=== PATIENT | male | born 1965 | race Caucasian/White ===

== ENCOUNTER 2017-11-12 15:11 | Inpatient (IN) | payer BC ==
[~2017-11-12] VITALS: Ht 172.7 cm; Wt 126.5 kg
[~2017-11-12 15:11] MED LIST: ADULT ONE DAI200 MCG PO; ANTIBIOTIC; ASCORBIC ACID500 M3 PO; BACLOFEN10 MG PO; BISACODYL5 MG PO; DOCUSATE SODIU100 MG PO; FOLIC ACID1 MG PO; GABAPENTIN300 MG PO; LIDOCAINE700 MG TD; LOPRESSOR25 MG PO; LOVENOX40 MG/0.4 SC; MOTRIN IB200 MG PO; OXYCODONE HCL5 MG PO; POLYETHYLENE GL17 GM PO; PRINIVIL20 MG PO; SENNA8.6 MG PO; THERAGRAN1 TABLET PO; TYLENOL REGULA325 MG PO
[2017-11-12 15:40] LABS: BASOPHIL (%) 0.6 % (0-1); BASOPHIL COUNT 0.1 K/uL (0-0.1); EOSINOPHIL (%) 1.1 % (0-5); EOSINOPHIL COUNT 0.1 K/uL (0-0.3); HEMOGLOBIN 17.6 G/DL (12.5-16.6); IMMATURE GRANULOCYTE (%) 0.7 % (0.0-0.7); LYMPHOCYTE (%) 11.2 % (15-42); LYMPHOCYTE COUNT 1.4 K/uL (1.0-2.8); MCH 30.4 PG (29.0-34.0); MCHC 34.5 G/DL (30.0-36.0); MCV 88.2 FL (86-99); MONOCYTE (%) 6.4 % (3-12); MONOCYTE COUNT 0.8 K/uL (0-0.8); NEUTROPHIL COUNT 10.1 K/uL (1.8-6.4); PLATELET COUNT 205 K/uL (156-360); RBC DIS.WIDTH-CV 13.8 % (11.8-14.6); RBC DIS.WIDTH-SD 44.9 % (39-53); RED BLOOD COUNT 5.78 M/uL (4.00-5.50); WHITE BLOOD COUNT 12.6 K/uL (4.1-10.2)
[2017-11-12 15:48] LABS: CHLORIDE 102 mEq/L (99-109); POTASSIUM 4.6 mEq/L (3.7-5.4); SODIUM 132 mEq/L (136-147)
[2017-11-12 15:50] LABS: GLUCOSE 366 mg/dL (70-99)
[2017-11-12 15:54] LABS: CREATININE 1.2 mg/dL (0.6-1.3); GFR ESTIMATE (CALCULATED) > 59 mL/min/ (58.99-99999)
[2017-11-12 15:55] LABS: UREA NITROGEN (BUN) 15 mg/dL (9-23)
[2017-11-12] MEDS ORDERED: BACTROBAN OINTM22 GM TP (18:04)
[2017-11-12] MEDS ORDERED: METOPROLOL SUCC50 MG PO (18:04)
[2017-11-12] MEDS ORDERED: [UNRECOGNIZED DRUG - OTHER] PO (18:04)
[2017-11-12] MEDS ORDERED: BACTRIM,SEPT1 TABLET PO (18:05)
[2017-11-12] MEDS ORDERED: METFORMIN HCL500 MG PO (18:05)
[2017-11-12] MEDS ORDERED: KETOCONAZOLE60 GM TP (18:06)
[2017-11-12 19:30] LABS: APPEARANCE CLEAR ((CLEAR)); BILIRUBIN NEGATIVE; BLOOD SMALL; COLOR YELLOW ((YELLOW)); GLUCOSE (STRIP) >=500; KETONES 80; LEUKOCYTES NEGATIVE; NITRITE NEGATIVE; PROTEIN (STRIP) 30; SPECIFIC GRAVITY 1.029 (1.000-1.030); UROBILINOGEN 0.2 MG/DL (0.2-1.0)
[2017-11-12 19:35] LABS: BACTERIA NONE SEEN /HPF; EPITHELIAL CELLS RARE /HPF; MUCUS TRACE /LPF; RED BLOOD CELLS 0-5 /HPF (0-5); WHITE BLOOD CELLS 0-5 /HPF (0-5)
[2017-11-12 20:45] LABS: CHLORIDE 109 mEq/L (99-109); SODIUM 137 mEq/L (136-147)
[2017-11-12 20:47] LABS: GLUCOSE 205 mg/dL (70-99)
[2017-11-12 20:48] LABS: POTASSIUM 3.4 mEq/L (3.7-5.4)
[2017-11-12 20:50] LABS: PHOSPHORUS 2.1 mg/dL (2.5-4.9)
[2017-11-12 20:51] LABS: CREATININE 0.8 mg/dL (0.6-1.3); GFR ESTIMATE (CALCULATED) > 59 mL/min/ (58.99-99999)
[2017-11-12 20:52] LABS: UREA NITROGEN (BUN) 15 mg/dL (9-23)
[2017-11-12 23:00] VITALS: BP 145/91
[2017-11-13] VITALS (13 sets, daily range): BP systolic 128–158; BP diastolic 75–103
[2017-11-13 00:42] LABS: CHLORIDE 109 mEq/L (99-109); POTASSIUM 3.4 mEq/L (3.7-5.4); SODIUM 134 mEq/L (136-147)
[2017-11-13 00:44] LABS: GLUCOSE 225 mg/dL (70-99)
[2017-11-13 00:47] LABS: PHOSPHORUS 1.9 mg/dL (2.5-4.9)
[2017-11-13 00:48] LABS: CREATININE 0.8 mg/dL (0.6-1.3); GFR ESTIMATE (CALCULATED) > 59 mL/min/ (58.99-99999); UREA NITROGEN (BUN) 13 mg/dL (9-23)
[2017-11-13 05:03] LABS: CHLORIDE 111 mEq/L (99-109); POTASSIUM 3.3 mEq/L (3.7-5.4); SODIUM 136 mEq/L (136-147)
[2017-11-13 05:05] LABS: GLUCOSE 191 mg/dL (70-99)
[2017-11-13 05:08] LABS: PHOSPHORUS 2.2 mg/dL (2.5-4.9)
[2017-11-13 05:09] LABS: CREATININE 0.7 mg/dL (0.6-1.3); GFR ESTIMATE (CALCULATED) > 59 mL/min/ (58.99-99999); UREA NITROGEN (BUN) 11 mg/dL (9-23)
[2017-11-13 08:41] LABS: CHLORIDE 110 MEQ/L (99-109); CREATININE 0.5 MG/DL (0.6-1.3); GFR ESTIMATE (CALCULATED) > 59 mL/min/ (58.99-99999); GLUCOSE 182 mg/dL (70-99); PHOSPHORUS 2.1 mg/dL (2.5-4.9); SODIUM 136 MEQ/L (136-147); UREA NITROGEN (BUN) 11 mg/dL (9-23)
[2017-11-13 13:53] LABS: CHLORIDE 109 mEq/L (99-109); POTASSIUM 3.1 mEq/L (3.7-5.4); SODIUM 137 mEq/L (136-147)
[2017-11-13 13:54] LABS: GLUCOSE 187 mg/dL (70-99)
[2017-11-13 13:58] LABS: CREATININE 0.7 mg/dL (0.6-1.3); GFR ESTIMATE (CALCULATED) > 59 mL/min/ (58.99-99999)
[2017-11-13 13:59] LABS: UREA NITROGEN (BUN) 10 mg/dL (9-23)
[2017-11-13 18:24] LABS: CHLORIDE 107 MEQ/L (99-109); POTASSIUM 3.1 MEQ/L (3.7-5.4); SODIUM 135 MEQ/L (136-147)
[2017-11-13 18:30] LABS: CREATININE 0.5 MG/DL (0.6-1.3); GFR ESTIMATE (CALCULATED) > 59 mL/min/ (58.99-99999); GLUCOSE 158 mg/dL (70-99); UREA NITROGEN (BUN) 12 mg/dL (9-23)
[2017-11-13 18:32] LABS: PHOSPHORUS 3.1 mg/dL (2.5-4.9)
[2017-11-14] VITALS (11 sets, daily range): BP systolic 128–163; BP diastolic 82–114
[2017-11-14 10:57] LABS: HEMOGLOBIN A1c (GLYCOHEMOGLOB) 12.2 % (Below 5.7)
[2017-11-14 11:32] LABS: CHLORIDE 104 MEQ/L (99-109); CREATININE 0.5 MG/DL (0.6-1.3); GFR ESTIMATE (CALCULATED) > 59 mL/min/ (58.99-99999); SODIUM 139 MEQ/L (136-147); UREA NITROGEN (BUN) 9 mg/dL (9-23)
[2017-11-14 11:33] LABS: GLUCOSE 307 mg/dL (70-99)
[2017-11-14 19:35] LABS: CHLORIDE 103 MEQ/L (99-109); CREATININE 0.5 MG/DL (0.6-1.3); GFR ESTIMATE (CALCULATED) > 59 mL/min/ (58.99-99999); GLUCOSE 268 mg/dL (70-99); POTASSIUM 3.3 MEQ/L (3.7-5.4); SODIUM 138 MEQ/L (136-147); UREA NITROGEN (BUN) 12 mg/dL (9-23)
[2017-11-15 03:42] VITALS: BP 142/91
[2017-11-15 07:09] LABS: CHLORIDE 104 MEQ/L (99-109); CREATININE 0.4 MG/DL (0.6-1.3); GFR ESTIMATE (CALCULATED) > 59 mL/min/ (58.99-99999); GLUCOSE 229 mg/dL (70-99); PHOSPHORUS 3.8 mg/dL (2.5-4.9); POTASSIUM 3.6 MEQ/L (3.7-5.4); SODIUM 142 MEQ/L (136-147); UREA NITROGEN (BUN) 9 mg/dL (9-23)
[2017-11-15 07:17] VITALS: BP 137/76
[2017-11-15 08:05] LABS: VANCOMYCIN, TROUGH 8.2 MCG/ML (10-20)
[2017-11-15 09:13] LABS: BASOPHIL (%) 0.5 % (0-1); EOSINOPHIL (%) 2.9 % (0-5); EOSINOPHIL COUNT 0.2 K/uL (0-0.3); HEMATOCRIT 44.4 % (38.0-50.0); IMMATURE GRANULOCYTE (%) 1.2 % (0.0-0.7); LYMPHOCYTE (%) 23.2 % (15-42); LYMPHOCYTE COUNT 1.4 K/uL (1.0-2.8); MCH 29.7 PG (29.0-34.0); MCV 87.2 FL (86-99); MONOCYTE (%) 8.7 % (3-12); MONOCYTE COUNT 0.5 K/uL (0-0.8); NEUTROPHIL (%) 63.5 % (45-76); NEUTROPHIL COUNT 3.7 K/uL (1.8-6.4); PLATELET COUNT 206 K/uL (156-360); RBC DIS.WIDTH-CV 13.8 % (11.8-14.6); RBC DIS.WIDTH-SD 44.2 % (39-53); RED BLOOD COUNT 5.09 M/uL (4.00-5.50); WHITE BLOOD COUNT 5.9 K/uL (4.1-10.2)
[2017-11-15 09:20] LABS: HEMOGLOBIN 15.1 G/DL (12.5-16.6)
[2017-11-15 15:49] VITALS: BP 144/93
[2017-11-15 21:33] LABS: CHLORIDE 97 MEQ/L (99-109); CREATININE 0.7 MG/DL (0.6-1.3); GFR ESTIMATE (CALCULATED) > 59 mL/min/ (58.99-99999); POTASSIUM 3.8 MEQ/L (3.7-5.4); SODIUM 136 MEQ/L (136-147); UREA NITROGEN (BUN) 11 mg/dL (9-23)
[2017-11-15 21:38] LABS: GLUCOSE 356 mg/dL (70-99)
[2017-11-15 23:30] VITALS: BP 156/93
[2017-11-16 02:15] LABS: CHLORIDE 100 mEq/L (99-109); POTASSIUM 3.9 mEq/L (3.7-5.4); SODIUM 139 mEq/L (136-147)
[2017-11-16 02:17] LABS: GLUCOSE 241 mg/dL (70-99)
[2017-11-16 02:21] LABS: CREATININE 0.7 mg/dL (0.6-1.3); GFR ESTIMATE (CALCULATED) > 59 mL/min/ (58.99-99999)
[2017-11-16 02:22] LABS: UREA NITROGEN (BUN) 12 mg/dL (9-23)
[2017-11-16 07:33] VITALS: BP 139/65
[2017-11-16] MEDS ORDERED: KEFLEX500 MG PO (09:34)
[2017-11-16] MEDS ORDERED: NOVOLOG 10100 UNITS/ SC (09:40)
[2017-11-16] MEDS ORDERED: LEVEMIR100 UNIT/2 SC (09:40)
[2017-11-16] MEDS ORDERED: ULTRAM50 MG PO (09:43)
[2017-11-16] MEDS ORDERED: TRESIBA FL100 UNIT/1 SC (11:22)
[2017-11-16] MEDS ORDERED: NOVOLOG PE100 UNITS/ SC (11:41)
== END 2017-11-16 13:45 | disposition home or self-care (01) | DRG 264 ==
LOC: EME 15:11 → CANRESERV 18:20 → ENRESERV 18:20 → 4WEST 18:23 → EDOF 18:23 → ENRESERV 21:06 → ENRESERVTM 21:31 → ENRESERVDT 21:31 → ENRESERV 21:31 → 4WEST 22:41 → ENRESERV 11-14 16:28 → 2EAST 11-14 20:17
PROVIDERS: Hospitalist; Internal Medicine; Internal Medicine Critical Care Medicine; Nurse Practitioner Family; Surgery
PROC: 0JBP0ZZ Excision of Left Lower Leg Subcutaneous Tissue and Fascia, Open Approach (ICD-10-PCS; principal; 2017-11-15)
DX: E11.52 Type 2 diabetes mellitus with diabetic peripheral angiopathy with gangrene (principal); S81.802A Unspecified open wound, left lower leg, initial encounter; L03.116 Cellulitis of left lower limb; E11.10 Type 2 diabetes mellitus with ketoacidosis without coma; E87.6 Hypokalemia; N17.9 Acute kidney failure, unspecified; G89.29 Other chronic pain; E66.9 Obesity, unspecified; Z68.41 Body mass index [BMI] 40.0-44.9, adult; R60.9 Edema, unspecified; Z87.891 Personal history of nicotine dependence; I10 Essential (primary) hypertension; Z88.0 Allergy status to penicillin
CPT/HCPCS: 73590; 73701; 73720; 80048; 80048 91; 80202; 81003; 82010; 82803; 82948; 83036; 83605; 84100; 85025; 85651; 86140; 87040; 87070; 87075; 87077; 87186; 87205; 87641; 93971; 99281; 99285; A6260; J0690; J1644; J1815; J1885; J3370; J7030; J7050